=== PATIENT | female | born 1970 | race Caucasian/White ===

== ENCOUNTER → 2023-08-20 | Outpatient (CLI) | payer OTHER ==
[2023-08-20 15:00] LABS: Bacterial Vaginosis PCR Negative (NEGATIVE); Candida Group, PCR NOT DETECTED (NOT DETECT); Candida glabrata-krusei, PCR NOT DETECTED (NOT DETECT)
[2023-08-24 11:10] LABS: HPV HIGH RISK BY TMA Not Detected; HPV SOURCE Cervical
== END | disposition home or self-care (01) ==
LOC: LAB SHORT 11:09
PROVIDERS: General Practice
DX: Z01.419 Encounter for gynecological examination (general) (routine) without abnormal findings (principal)
CPT/HCPCS: 87481; 87661; 87801

== ENCOUNTER → 2024-10-13 | Outpatient (CLI) | payer OTHER ==
[2024-10-13 20:46] LABS: Microalb/Creat Ratio UR, Rand 12.5 mg/g (0.000-30.000)
== END ==
LOC: LAB 17:55 → LAB SHORT 17:55
PROVIDERS: Student in an Organized Health Care Education/Training Program
DX: R79.9 Abnormal finding of blood chemistry, unspecified (principal)
CPT/HCPCS: 82043; 82570